=== PATIENT | female | born 1965 | race Caucasian/White ===

== ENCOUNTER → 2019-12-27 08:31 | Outpatient (BNVA) | payer MEDICARE, MEDICAID, SELFPAY | PROVIDERS: Family Provider Family Medicine; PCP Family Medicine; Visit Provider Family Medicine | DX: I10 Essential (primary) hypertension (principal); E78.5 Hyperlipidemia, unspecified; E11.9 Type 2 diabetes mellitus without complications; M25.561 Pain in right knee | CPT/HCPCS: 80053; 80061; 82044; 83036; 85025 ==

== ENCOUNTER 2020-04-30 13:01 | Outpatient (CLI) | payer MEDICARE, MEDICAID, SELFPAY ==
--- NOTE | 2020-04-30 13:06 | XR_ITS ---
WS: [id number] DEXA (DUAL ENERGY X-RAY ABSORPTIOMETRY) Bone mineral density was performed using a [employer] machine. HISTORY: Asymptomatic menopausal state COMPARISON: 12/29/2017 Lumbar spine BMD (L1-L4): 1.342 g/cm2 T score: 1.3 Z score: 1.2 Total hip BMD: Left: 1.072 g/cm2. T score: 0.5 Z score: 0.4 Right: 1.063 g/cm2. T score: 0.4 Z score: 0.4 10 year probability of a major osteoporotic fracture is 5%. Compared to the prior study from 12/29/2017. Lumbar spine bone mineral density has decreased by 5.6%. Bilateral hips bone mineral density has decrease by 6.3%. XR/XR DEXA axial skeleton* [id number] IMPRESSION: Normal bone mineral density based upon the WHO classification for females. Significant decrease in bone mineral density in the lumbar spine and hips since the prior study.
--- NOTE | 2020-04-30 14:30 | CT_ITS ---
WS: [id number] LDCT LUNG CANCER SCREENING TECHNIQUE: Noncontrast CT of the chest with coronal and sagittal reformatted images. CLINICAL INFORMATION: CT LUNG SCREENING COMPARISON: None. DLP: 50.33 mGy.cm DIvol: 1.[address] scans at [facility] use at least one of these dose optimization techniques: automat ed exposure control; mA and/or kV adjustment per patient size (includes targeted exams where dose is matched to clinical indication); or iterative reconstruction. FINDINGS: Several noncalcified pulmonary nodules in both lungs more prominent in the right upper lobe. Largest nodules measure approximate 4-5 mm most prominent in the right upper lobe posteriorly. Approximately 4-5 nodules in total. Aortic calcification. Coronary calcification. Normal GE junction. Visualized adrenal glands appear no rmal. Hypertrophic changes thoracic spine. CT/CT lung screening [id number] IMPRESSION: LUNG-RADS: 2-Benign Appearance or Behavior FOLLOW UP: 12 Month: Continue annual screening with LDCT
== END 2020-04-30 13:02 | disposition home or self-care (01) ==
LOC: CT 13:05
PROVIDERS: Family Provider Family Medicine; PCP Family Medicine; Visit Provider Family Medicine
DX: Z78.0 Asymptomatic menopausal state (principal); F17.219 Nicotine dependence, cigarettes, with unspecified nicotine-induced disorders
CPT/HCPCS: 77080; G0297

== ENCOUNTER 2020-05-06 08:31 | Outpatient (CLI) | payer MEDICARE, MEDICAID, SELFPAY ==
--- NOTE | 2020-05-06 08:37 | MM_ITS ---
WS: [id number] BILATERAL DIGITAL SCREENING MAMMOGRAPHY WITH CAD CLINICAL INFORMATION: SCREENING HISTORY: Screening mammogram. No current complaints. COMPARISON: TECHNIQUE: Bilateral CC and MLO views. FINDINGS: Scattered fibroglandular densities bilaterally. No suspicious focal mass, asymmetry, calcifications, or architectural distortion. No evidence of malignancy. Punctate calcification right breast. Lucent c entered calcification right breast. MM/[id number] IMPRESSION: BI-RADS: 2-Benign FOLLOW UP: 1 Year Follow-up Recommend return to annual screening mammography.
== END 2020-05-06 08:32 | disposition home or self-care (01) ==
LOC: RADSHAW 08:35
PROVIDERS: PCP Family Medicine; Visit Provider Family Medicine
DX: Z12.31 Encounter for screening mammogram for malignant neoplasm of breast (principal)
CPT/HCPCS: 77067

== ENCOUNTER → 2020-08-06 09:08 | Outpatient (BNVA) | payer MEDICARE, MEDICAID, SELFPAY | PROVIDERS: PCP Family Medicine; Visit Provider Family Medicine | DX: E78.5 Hyperlipidemia, unspecified (principal); E11.9 Type 2 diabetes mellitus without complications; I10 Essential (primary) hypertension; M25.561 Pain in right knee; M25.562 Pain in left knee; G89.29 Other chronic pain; F17.219 Nicotine dependence, cigarettes, with unspecified nicotine-induced disorders | CPT/HCPCS: 80053; 80061; 82043; 83036; 85025 ==

== ENCOUNTER → 2021-02-03 08:14 | Outpatient (BNVA) | payer MEDICARE, MEDICAID, SELFPAY | PROVIDERS: PCP Family Medicine; Visit Provider Family Medicine | DX: E11.9 Type 2 diabetes mellitus without complications (principal); I10 Essential (primary) hypertension; E78.5 Hyperlipidemia, unspecified; K21.9 Gastro-esophageal reflux disease without esophagitis; M25.561 Pain in right knee; M25.562 Pain in left knee; G89.29 Other chronic pain; F17.219 Nicotine dependence, cigarettes, with unspecified nicotine-induced disorders | CPT/HCPCS: 80053; 83036 ==

== ENCOUNTER → 2021-08-04 09:08 | Outpatient (BNVA) | payer MEDICARE, MEDICAID, SELFPAY | PROVIDERS: PCP Family Medicine; Visit Provider Family Medicine | DX: E11.9 Type 2 diabetes mellitus without complications (principal); E78.5 Hyperlipidemia, unspecified; I10 Essential (primary) hypertension | CPT/HCPCS: 80053; 80061; 82043; 82607; 83036; 85025 ==

== ENCOUNTER → 2022-01-05 08:48 | Outpatient (BNVA) | payer MEDICARE, MEDICAID, SELFPAY | PROVIDERS: PCP Family Medicine; Visit Provider Family Medicine | DX: E11.9 Type 2 diabetes mellitus without complications (principal); E53.8 Deficiency of other specified B group vitamins; D50.9 Iron deficiency anemia, unspecified; I10 Essential (primary) hypertension; F50.89 Other specified eating disorder; E78.5 Hyperlipidemia, unspecified; K21.9 Gastro-esophageal reflux disease without esophagitis; F17.219 Nicotine dependence, cigarettes, with unspecified nicotine-induced disorders; Z12.11 Encounter for screening for malignant neoplasm of colon; Z68.42 Body mass index [BMI] 45.0-49.9, adult | CPT/HCPCS: 80053; 82607; 82728; 83036; 83550; 85025 ==

== ENCOUNTER → 2022-06-09 14:58 | Outpatient (BNVA) | payer MEDICARE, MEDICAID, SELFPAY | PROVIDERS: PCP Family Medicine; Visit Provider Family Medicine | DX: Z01.818 Encounter for other preprocedural examination (principal); E78.5 Hyperlipidemia, unspecified; E11.9 Type 2 diabetes mellitus without complications | CPT/HCPCS: 80053; 80061; 82043; 83036; 85025 ==

== ENCOUNTER → 2022-12-08 13:33 | Outpatient (BNVA) | payer MEDICARE, MEDICAID, SELFPAY | PROVIDERS: PCP Family Medicine; Visit Provider Family Medicine | DX: E11.9 Type 2 diabetes mellitus without complications (principal); E53.8 Deficiency of other specified B group vitamins | CPT/HCPCS: 80053; 82607; 83036; 85025 ==

== ENCOUNTER 2022-12-25 12:19 | Outpatient (CLI) | payer MEDICARE, MEDICAID, SELFPAY ==
--- NOTE | 2022-12-25 12:44 | MM_ITS ---
WS: [id number] BILATERAL SCREENING DIGITAL TOMOSYNTHESIS MAMMOGRAM WITH CAD HISTORY: SCREEN COMPARISON: 05/06/2020, 01/19/2019 Bilateral CC and MLO views with tomosynthesis and synthetic mammography submitted. Computer aided det ection analyzed. Breast composition: There are scattered areas of fibroglandular density. No suspicious masses, microc alcifications or architectural distortion. Benign calcifications. MM/[id number] IMPRESSION: BI-RADS: 2-Benign FOLLOW UP: 1 Year Follow-up
== END 2022-12-25 12:20 | disposition home or self-care (01) ==
LOC: RAD 12:22
PROVIDERS: PCP Family Medicine; Visit Provider Family Medicine
DX: Z12.31 Encounter for screening mammogram for malignant neoplasm of breast (principal)
CPT/HCPCS: 77063; 77067

== ENCOUNTER → 2023-05-31 14:44 | Outpatient (BNVA) | payer MEDICARE, MEDICAID, SELFPAY | PROVIDERS: PCP Family Medicine; Visit Provider Family Medicine | DX: E11.9 Type 2 diabetes mellitus without complications (principal) | CPT/HCPCS: 80053; 80061; 83036 ==

== ENCOUNTER → 2023-11-16 13:40 | Outpatient (BNVA) | payer MEDICARE, MEDICAID, SELFPAY | PROVIDERS: PCP Family Medicine; Visit Provider Family Medicine | DX: E11.9 Type 2 diabetes mellitus without complications (principal); F17.219 Nicotine dependence, cigarettes, with unspecified nicotine-induced disorders; I10 Essential (primary) hypertension; M25.561 Pain in right knee; M25.562 Pain in left knee; G89.29 Other chronic pain; Z79.899 Other long term (current) drug therapy | CPT/HCPCS: 80053; 82043; 83036; 85025 ==

== ENCOUNTER → 2024-03-28 13:43 | Outpatient (BNVA) | payer MEDICARE, MEDICAID, SELFPAY | PROVIDERS: PCP Family Medicine; Visit Provider Family Medicine | DX: E11.9 Type 2 diabetes mellitus without complications (principal) | CPT/HCPCS: 80048 ==

== ENCOUNTER 2024-04-11 10:55 | Outpatient (CLI) | payer MEDICARE, MEDICAID, SELFPAY ==
--- NOTE | 2024-04-11 11:00 | MM_ITS ---
WS: [id number] Bilateral screening 3D tomosynthesis digital mammogram, 04/11/2024 Clinical Data: screening Comparison: 12/25/2022, 05/06/2020, 01/19/2019, 12/29/2017, 04/11/2014. Findings: The breast parenchymal pattern shows fibroglandular tissue. No spiculated masses or clustered calcifi cations are seen. There are no secondary signs of carcinoma. MM/[id number] Impression: 1. Negative bilateral mammogram unchanged. 2. Recommend annual screening mammograms. BIRADS: 1-Negative FOLLOW UP: 1 Year Follow-up The CAD shipping checker was used.
== END 2024-04-11 10:56 | disposition home or self-care (01) ==
LOC: RAD 10:56
PROVIDERS: PCP Family Medicine; Visit Provider Family Medicine
DX: Z12.31 Encounter for screening mammogram for malignant neoplasm of breast (principal)
CPT/HCPCS: 77063; 77067

== ENCOUNTER → 2024-06-08 14:23 | Outpatient (BNVA) | payer MEDICARE, MEDICAID, SELFPAY | PROVIDERS: PCP Family Medicine; Visit Provider Family Medicine | DX: E11.9 Type 2 diabetes mellitus without complications; N18.31 Chronic kidney disease, stage 3a | CPT/HCPCS: 80053; 83036; 85025 ==

== ENCOUNTER 2024-06-21 09:58 | Outpatient (CLI) | payer MEDICARE, MEDICAID, SELFPAY ==
--- NOTE | 2024-06-21 10:00 | CT_ITS ---
WS: [id number] LDCT LUNG CANCER SCREENING HISTORY: screening TECHNIQUE: Axial imaging performed from the apices to 1 cm below the costophrenic angles. Coronal and sagittal reformats are submitted with axial MIP series. All CT scans at [facility] use at least one of these dose optimization techniques: automated exposure control; mA and/or kV adjustment per patient size (includes targeted exams where dose is matched to clinical indication); or iterativ e reconstruction. DLP: 140.37 mGy.cm DIvol: Mean CTDIvol: 3.40 (mGy) COMPARISON: 04/30/2020 Diagnostic quality: Suboptimal secondary to body habitus but improved since 04/30/2020. Lungs: Pulmonary hyperinflation. Lungs are better visualized on today's exam. There is a tiny microno dule anterior RIGHT upper lobe in the posterior RIGHT upper lobe. This may've been present on the carole or exam but poorly visualized due to the quality. There are no suspicious masses identified. There ar e a few small granulomata. No endobronchial lesions. Heart: Normal size heart with no pericardial effusion.. Other findings: No adenopathy identified on this unenhanced exam. Mild atherosclerosis aorta. Normal size pulmonary artery. RIGHT adrenal nodule measures 1.4 x 1.2 cm consistent with a adenoma. Mild thi ckening of the LEFT adrenal gland. CT/CT lung screening [id number] IMPRESSION: LUNG-RADS: 2-Benign Appearance or Behavior FOLLOW UP: 12 Month: Continue annual screening with LDCT OTHER FINDINGS (S MODIFIER): None.
== END 2024-06-21 09:59 | disposition home or self-care (01) ==
LOC: RAD 09:58
PROVIDERS: PCP Family Medicine; Visit Provider Family Medicine
DX: Z12.2 Encounter for screening for malignant neoplasm of respiratory organs (principal); F17.219 Nicotine dependence, cigarettes, with unspecified nicotine-induced disorders; R91.1 Solitary pulmonary nodule; J98.4 Other disorders of lung; D35.01 Benign neoplasm of right adrenal gland
CPT/HCPCS: 71271

== ENCOUNTER → 2024-06-29 11:32 | Outpatient (BNVA) | payer MEDICAID, SELFPAY | PROVIDERS: PCP Family Medicine; Visit Provider Nurse Practitioner | DX: R50.9 Fever, unspecified (principal) | CPT/HCPCS: 87400; 87426 ==

== ENCOUNTER → 2024-07-03 14:18 | Outpatient (BNVA) | payer MEDICAID, SELFPAY | PROVIDERS: PCP Family Medicine; Visit Provider Family Medicine | DX: R10.9 Unspecified abdominal pain (principal) | CPT/HCPCS: 81000 ==

== ENCOUNTER 2024-07-05 17:21 | Emergency (ER) | payer MEDICARE, MEDICAID, SELFPAY ==
[2024-07-05 17:41] VITALS: BP 137/55; PULSE 64; RESP 18; TEMP 37.7; O2SAT 93
--- NOTE | 2024-07-05 17:49 | XRR_ITS ---
PROCEDURE INFORMATION: Exam: XR Chest Exam date and time: 07/05/2024 6:14 PM Age: 59 years old Clinical indication: Fever; Additional info: Fever, cough TECHNIQUE: Imaging protocol: Radiologic exam of the chest. Views: 1 view. COMPARISON: CT lung screening [id number] 06/21/2024 10:33 AM FINDINGS: Lungs: Unremarkable. No consolidation. Pleural spaces: Unremarkable. No pleural effusion. No pneumothorax. Heart/Mediastinum: Unremarkable. No cardiomegaly. Bones/joints: Unremarkable. XR/XR chest 1V portable [id number] IMPRESSION: No acute findings.
[2024-07-05 18:14] LABS: Basophils # 0.1 10^3/uL (0.0-0.1); Basophils % 0.4 %; Eosinophils % 0.1 %; Hematocrit 36.9 % (36-47); Lymphocytes # 1.1 10^3/uL (0.8-4.8); Lymphocytes % 7.4 %; Mean Corpuscular HGB Conc 32.5 g/dL (30-55); Mean Corpuscular Hemoglobin 26.5 pg (27-33); Mean Corpuscular Volume 81.6 fl (85-98); Mean Platelet Volume 10.7 fL (7.4-10.4); Monocytes # 1.6 10^3/uL (0.2-0.9); Monocytes % 11.4 %; Neutrophils # 11.28 10^3/uL (1.8-7.7); Neutrophils % 79.1 %; Nucleated Red Blood Cells % 0 %; Platelet Count 310 10^3/cmm (157-399); Red Blood Count 4.52 10^6/uL (3.85-5.65); Red Cell Distribution Width 18.5 % (12.1-15.1); White Blood Count 14.25 10^3/uL (3.29-11.43)
--- NOTE | 2024-07-05 18:24 | ED_ITS ---
HPI - Fever 2 General: Chief Complaint: Fever Stated Complaint: fever, pain Time Seen by Provider: 07/05/24 17:46 History of Present Illness: 59-year-old female with history of GERD, type 2 diabetes, hypertension, chronic kidney disease and obesity who presents to the emergency room with fever and malaise for about a week now. Her only symptom she has had some pain in her legs, in the right more than the left. In her groin area. Other than malaise she has no other complaints. No cough. No shortness of breath. No abdominal pain. No nausea or vomiting. No diarrhea. No dysuria. No neck pain. Related Data Home Medications Medication Instructions Recorded Confirmed aspirin 81 mg tablet,delayed 81 mg PO DAILY 12/27/19 07/03/24 release magnesium oxide 250 mg PO DAILY 12/27/19 07/03/24 calcium carbonate (Calcium 500) 500 mg PO DAILY 05/24/20 07/03/24 cholecalciferol (vitamin D3) 50 50 mcg PO DAILY 05/24/20 07/03/24 mcg (2,000 unit) capsule gabapentin 800 mg tablet 800 mg PO DAILY 06/09/22 07/03/24 Previous Rx's Medication Instructions Recorded blood sugar diagnostic (Accu-Chek #100 ea 02/11/21 Ivonne Plus test strips) lancets (Accu-Chek Fastclix Lancet #100 ea 02/11/21 Drum) syringe with needle 3 mL 23 x 1 #50 ea 08/08/21 (BD Eclipse Luer-Jadyn) cyanocobalamin (vitamin B-12) 1,000 mcg IM .monthly #1 mL 01/07/22 1,000 mcg/mL injection solution syringe with needle 3 mL 21 gauge #100 ea 01/07/22 x 1 (BD Luer-Jadyn Syringe) lisinopril 10 mg tablet See Rx Instructions .Route 03/17/24 .COMPLEX #180 tabs gabapentin 300 mg capsule See Rx Instructions .Route 03/28/24 .COMPLEX #90 caps hydrocodone 5 mg-acetaminophen 325 1 tab PO Q4H PRN pain 7 days #30 03/28/24 mg tablet tabs meloxicam 15 mg tablet 15 mg PO DAILY #90 tabs 06/08/24 varenicline 1 mg tablet (Chantix) 0.5 mg (1/2 x 1 mg) PO BID #30 tabs 06/08/24 glipizide 5 mg tablet 5 mg PO DAILY #90 tabs 06/09/24 metformin 500 mg tablet 500 mg PO BID #180 tabs 06/09/24 atenolol 50 mg-chlorthalidone 25 See Rx Instructions .Route 06/27/24 mg tablet .COMPLEX #90 tabs omeprazole 20 mg capsule,delayed See Rx Instructions .Route 06/27/24 release .COMPLEX #90 caps rosuvastatin 20 mg tablet See Rx Instructions .Route 06/27/24 .COMPLEX #90 tabs ondansetron 4 mg disintegrating 4 mg PO Q8H PRN nausea and 06/29/24 tablet vomiting #30 tabs cephalexin 500 mg capsule 500 mg PO BID 5 days #10 caps 07/05/24 dexamethasone 6 mg tablet 6 mg PO DAILY 5 days #5 tabs 07/05/24 doxycycline monohydrate 100 mg 100 mg PO BID 10 days #20 caps 07/05/24 capsule Allergies Allergy/AdvReac Type Severity Reaction Status Date / Time No Known Allergies Allergy Verified 07/05/24 17:45 Review of Systems 2 Narrative: Constitutional symptoms: Negative except as documented in HPI. Skin symptoms: Negative except as documented in HPI. Eye symptoms: Negative except as documented in HPI. ENMT symptoms: Negative except as documented in HPI. Respiratory symptoms: Negative except as documented in HPI. Cardiovascular symptoms: Negative except as documented in HPI. Gastrointestinal symptoms: Negative except as documented in HPI. Genitourinary symptoms: Negative except as documented in HPI. Musculoskeletal symptoms: Negative except as documented in HPI. Neurologic symptoms: Negative except as documented in HPI. Psychiatric symptoms: Negative except as documented in HPI. Endocrine symptoms: Negative except as documented in HPI. PFSH ED 2 PFSH: Medical History (Updated 07/05/24 @ 20:31 by Katrina Savage MD) CKD stage 3a, GFR 45-59 ml/min Tobacco use disorder Dyslipidemia GERD (gastroesophageal reflux disease) Type 2 diabetes mellitus, without long-term current use of insulin Essential hypertension Chronic pain of both knees Surgical History H/O: hysterectomy H/O section Family History Other CAD (coronary artery disease) Diabetes Hypertension Social History Smoking and tobacco/nicotine status: current every day tobacco/nicotine user cigarettes Packs smoked per day: 0.75 Alcohol intake: never Substance/Drug Use: never Female Reproductive History: Para: 2 Spontaneous abortions: No Physical Exam 2 Narrative: EXAM NARRATIVE: General: Alert, no acute distress. Skin: Warm, dry. Head: Normocephalic, atraumatic. Neck: Supple, trachea midline. Eye: Extraocular movements are intact. Ears, nose, mouth and throat: mucosa moist. Cardiovascular: Regular, Normal peripheral perfusion. Respiratory: Lungs are clear to auscultation, respirations are non-labored, breath sounds are equal, Symmetrical chest wall expansion. Gastrointestinal: Soft, Nontender, Non distended Musculoskeletal: Normal ROM, no deformity. Neurological: Alert and oriented, No focal neurological deficit observed. Psychiatric: Cooperative, appropriate mood & affect. Course 2 Vital Signs: Vital signs: Vital Signs Temperature 100 F H 07/05/24 17:41 Pulse Rate 60 07/05/24 19:45 Respiratory Rate 16 07/05/24 19:45 Blood Pressure 138/93 07/05/24 19:45 Pulse Oximetry 96 07/05/24 19:45 Oxygen Delivery Me thod Room Air 07/05/24 19:45 MDM - Fever Medical Decision Making Medical decision making: Differential diagnosis including but not limited to and based on the above HPI, review of systems and physical exam: Fever for over a week now. Concern for pneumonia. Concern for urinary tract infection. Concern for tickborne illness. Concern for autoimmune illness. Also with her pain in her leg I would worry about DVT so an ultrasound was ordered. Orders placed to evaluate differential diagnosis based on the above differential, HPI and physical exam Lab Review: Laboratory results were reviewed and interpreted by myself the emergency room physician. Patient was noted to have some low glucose. She took some oral food and drink and glucose has improved. Mild leukocytosis with a white count of 14,000. Hemoglobin normal at 12. BUN and creatinine 28 and 0.9. Sodium borderline low at 134. CRP was elevated quite significantly at 277. Urinalysis showed 10-15 whites and trace bacteria. I really do not think this is a significant enough of a UTI to be causing her symptoms but we will treat. Placing her on doxycycline and Keflex. Ultrasound lower extremity shows no DVT. This was reviewed and interpreted by myself the emergency room physician. I also reviewed the radiology report. Chest x-ray: No acute process. No infiltrate. No pneumothorax. This was reviewed and interpreted by myself the ER physician. I reviewed the patient's medical record. Reexamination: Patient remained stable. No increased work of breathing. No altered mental status. No focal motor deficits. Assessment and plan: Febrile illness ?Inflammatory markers are up. This could be some sort of autoimmune illness. Ultrasound ruled out DVT. IV Decadron being given. IV Rocephin for possible UTI. IV doxycycline for possible atypical infection or tick illness. - Discharged home - Discussed plan with patient. Answered any questions. - Evaluation and treatment of this problem were appropriate in the emergency setting. Lab Data 07/05/24 18:00 07/05/24 18:00 Radiology Impressions Chest X-Ray 07/05/24 17:49 IMPRESSION: No acute findings. Venous Duplex 07/05/24 18:25 IMPRESSION: No evidence of deep vein thrombosis in the bilateral lower extremities. Laboratory Results WBC 14.25 10^3/uL (3.29-11.43) H 07/05/24 18:00 RBC 4.52 10^6/uL (3.85-5.65) 07/05/24 18:00 Hgb 12.00 g/dL (11.27-16.99) 07/05/24 18:00 Hct 36.9 % (36-47) 07/05/24 18:00 MCV 81.6 fl (85-98) L 07/05/24 18:00 MCH 26.5 pg (27-33) L 07/05/24 18:00 MCHC 32.5 g/dL (30-55) 07/05/24 18:00 RDW 18.5 % (12.1-15.1) H 07/05/24 18:00 Plt Count 310 10^3/cmm (157-399) 07/05/24 18:00 MPV 10.7 fL (7.4-10.4) H 07/05/24 18:00 Neut % (Auto) 79.1 % 07/05/24 18:00 Lymph % (Auto) 7.4 % 07/05/24 18:00 [place] % (Auto) 11.4 % 07/05/24 18:00 Eos % (Auto) 0.1 % 07/05/24 18:00 Baso % (Auto) 0.4 % 07/05/24 18:00 Neut # (Auto) 11.28 10^3/uL (1.8-7.7) H 07/05/24 18:00 Lymph # (Auto) 1.1 10^3/uL (0.8-4.8) 07/05/24 18:00 [place] # (Auto) 1.6 10^3/uL (0.2-0.9) H 07/05/24 18:00 Eos # (Auto) 0.0 10^3/uL (0.0-0.8) 07/05/24 18:00 Baso # (Auto) 0.1 10^3/uL (0.0-0.1) 07/05/24 18:00 Nucleated RBC % (auto) 0 % 07/05/24 18:00 Nucleated RBCs # 0.0 /100WBC 07/05/24 18:00 Sodium 134 mmol/L (136-145) L 07/05/24 18:00 Potassium 3.6 mmol/L (3.5-5.1) 07/05/24 18:00 Chloride 94 mmol/L (98-107) L 07/05/24 18:00 Carbon Dioxide 28 mmol/L (22-29) 07/05/24 18:00 Anion Gap 15.6 (5-19) 07/05/24 18:00 BUN 28 mg/dL (8-23) H 07/05/24 18:00 Creatinine 0.9 mg/dL (0.5-0.9) 07/05/24 18:00 GFR Calculation 63.7 mL/min (90-130) L 07/05/24 18:00 Glucose 54 mg/dL (65-115) L 07/05/24 18:00 POC Glucose 80 mg/dL (70-110) 07/05/24 19:54 Calculated Osmolality 281 mOsm/kg (285-295) L 07/05/24 18:00 Lactic Acid 0.9 mmol/L (0.5-2.2) 07/05/24 18:00 Calcium 9.6 mg/dL (8.5-10.5) 07/05/24 18:00 Total Bilirubin 0.8 mg/dL (0.15-1.2) 07/05/24 18:00 AST 45 U/L (0-32) H 07/05/24 18:00 ALT 50 U/L (0-33) H 07/05/24 18:00 Alkaline Phosphatase 106 U/L (35-105) H 07/05/24 18:00 C-Reactive Protein 277.5 mg/L (0.0-4.9) H 07/05/24 18:00 Total Protein 7.1 g/dL (6.6-8.7) 07/05/24 18:00 Albumin 3.2 g/dL (3.5-5.2) L 07/05/24 18:00 Globulin 3.9 g/dL (1.3-4.6) 07/05/24 18:00 Procalcitonin 0.16 ng/mL (0-0.5) 07/05/24 18:00 Urine Color [place] (Yellow) A 07/05/24 20:00 Urine Appearance Clear (CLEAR) 07/05/24 20:00 Urine pH 5.5 (5-7) 07/05/24 20:00 Ur Specific [place] 1.027 (1.005-1.030) 07/05/24 20:00 Urine Protein 1+ (Negative) A 07/05/24 20:00 Urine Glucose (UA) Negative (Normal) 07/05/24 20:00 Urine Ketones Negative (Negative) 07/05/24 20:00 Urine Blood Negative (Negative) 07/05/24 20:00 Urine Nitrate Negative (Negative) 07/05/24 20:00 Urine Bilirubin 1+ (Negative) H 07/05/24 20:00 Urine Urobilinogen 1.0 mg/dL (Negative) 07/05/24 20:00 Ur Leukocyte Esterase Trace (Negative) A 07/05/24 20:00 Urine RBC 0-4 /hpf (0-2) H 07/05/24 20:00 Urine WBC 10-15 /hpf (0-5) H 07/05/24 20:00 Ur Squamous Epith Cells 25-40 /hpf (0-5) H 07/05/24 20:00 Amorphous Sediment Trace /hpf 07/05/24 20:00 Urine Bacteria Trace /hpf (NONE) 07/05/24 20:00 Urine Mucus Trace /hpf 07/05/24 20:00 Ur Oval Fat Bodies Rare /hpf 07/05/24 20:00 Coronavirus (PCR) Negative (Negative) 07/05/24 17:58 Influenza A (PCR) Negative (Negative) 07/05/24 17:58 Influenza Type B (PCR) Negative (Negative) 07/05/24 17:58 RSV (PCR) Negative (Negative) 07/05/24 17:58 All radiology interpretation(s) finalized by discharge Discharge Plan Discharge Patient Disposition: Home Clinical Impression: Febrile illness Condition: Stable Prescriptions: New dexamethasone 6 mg tablet 6 mg PO DAILY 5 Days Qty: 5 0RF doxycycline monohydrate 100 mg capsule 100 mg PO BID 10 Days Qty: 20 0RF cephalexin 500 mg capsule 500 mg PO BID 5 Days Qty: 10 0RF No Action aspirin 81 mg tablet,delayed release (DR/EC) 81 mg PO DAILY magnesium oxide 250 mg magnesium tablet 250 mg PO DAILY cholecalciferol (vitamin D3) 50 mcg (2,000 unit) capsule 50 mcg PO DAILY calcium carbonate [Calcium 500] 500 mg calcium (1,250 mg) tablet 500 mg PO DAILY varenicline [Chantix] 1 mg tablet 0.5 mg PO BID Qty: 30 5RF meloxicam 15 mg tablet 15 mg PO DAILY Qty: 90 1RF ondansetron 4 mg tablet,disintegrating 4 mg PO Q8H PRN (Reason: nausea and vomiting) Qty: 30 0RF gabapentin 800 mg tablet 800 mg PO DAILY hydrocodone-acetaminophen 5-325 mg tablet 1 tab PO Q4H PRN (Reason: pain) 7 Days Qty: 30 0RF (DME) Accu-Chek Ivonne Plus test strp Strip See Rx Instructions .Route Qty: 100 5RF Rx Instructions: ONCE DAILY (DME) lancets [Accu-Chek Fastclix Lancet Drum] Misc See Rx Instructions .Route Qty: 100 5RF Rx Instructions: ONE DAILY (DME) BD Eclipse Luer-Jadyn 3 mL 23 x 1 syringe See Rx Instructions .Route Qty: 50 2RF Rx Instructions: to injection b12 90 day supply cyanocobalamin (vitamin B-12) 1,000 mcg/mL solution 1,000 mcg IM .monthly Qty: 1 2RF (DME) BD Luer-Jadyn Syringe 3 mL 21 gauge x 1 syringe See Rx Instructions .Route Qty: 100 0RF Rx Instructions: As directed lisinopril 10 mg tablet See Rx Instructions .ROUTE .COMPLEX Qty: 180 0RF Dose Instruction: Take 1 tablet by mouth twice daily Rx Instructions: Take 1 tablet by mouth twice daily gabapentin 300 mg capsule See Rx Instructions .ROUTE .COMPLEX Qty: 90 0RF Dose Instruction: Take 1 capsule by mouth once daily Rx Instructions: Take 1 capsule by mouth once daily glipizide 5 mg tablet 5 mg PO DAILY Qty: 90 1RF metformin 500 mg tablet 500 mg PO BID Qty: 180 1RF Rx Instructions: 500 mg orally twice a day; omeprazole 20 mg capsule,delayed release(DR/EC) See Rx Instructions .ROUTE .COMPLEX Qty: 90 0RF Dose Instruction: Take 1 capsule by mouth once daily Rx Instructions: Take 1 capsule by mouth once daily rosuvastatin 20 mg tablet See Rx Instructions .ROUTE .COMPLEX Qty: 90 0RF Dose Instruction: Take 1 tablet by mouth once daily Rx Instructions: Take 1 tablet by mouth once daily atenolol-chlorthalidone 50-25 mg tablet See Rx Instructions .ROUTE .COMPLEX Qty: 90 0RF Dose Instruction: Take 1 tablet by mouth once daily Rx Instructions: Take 1 tablet by mouth once daily Discharge Orders: Discharge ED (Routine); Ordered 07/05/24 Ordered By: Katrina Savage Referrals: Howard Owen MD [Primary Care Provider] - Discharge Diet: Usual diet Discharge Activity: Increase activity as tolerated Patient Instructions: Fever in Adults (ED) Activity Restrictions/Additional Instructions: Thank you for choosing [facility] for your healthcare needs today. Please realize this is an emergency room and that we are providing you with a medical screening exam and this may not be complete and all inclusive of all the testing and or work up that you may need to determine your ailment or severity of your illness. You have been screened and evaluated and felt safe for discharge. Health conditions do change or evolve sometimes and as such it is important that you follow up with your Primary Doctor to be re checked, 3-5 days is a general good time frame for follow up. You are always welcome to return to the ED for re assessment if your symptoms are worsening or you have new concerns Coding Level of Care Code ED Conventions Reservationist for Luz Medina
--- NOTE | 2024-07-05 18:25 | USR_ITS ---
PROCEDURE INFORMATION: Exam: US Duplex Lower Extremity Veins, Bilateral Exam date and time: 07/05/2024 7:28 PM Age: 59 years old Clinical indication: Pain; Leg, lower; Bilateral; Additional info: Fever, leg pain TECHNIQUE: Imaging protocol: Real-time duplex ultrasound of the bilateral extremities with 2-D beaver scale, color Doppler flow and spectral waveform analysis including responses to compression and other maneuvers (when performed) with image documentation. Complete exam focused on the lower extremity veins. COMPARISON: No relevant prior studies available. FINDINGS: Right deep veins: Unremarkable. The common femoral, femoral, proximal profunda femoral and popliteal veins are patent without thrombus. Normal Doppler waveforms. Normal compressibility and/or augmentation response. Left deep veins: Unremarkable. The common femoral, femoral, proximal profunda femoral and popliteal veins are patent without thrombus. Normal Doppler waveforms. Normal compressibility and/or augmentation response. Superficial veins: Greater saphenous veins at the saphenofemoral junctions are patent bilaterally without thrombus. Soft tissues: Unremarkable. US/CV venous duplex [facility] [id number] IMPRESSION: No evidence of deep vein thrombosis in the bilateral lower extremities.
[2024-07-05 18:29] LABS: Alanine Aminotransferase 50 U/L (0-33); Albumin Level 3.2 g/dL (3.5-5.2); Alkaline Phosphatase 106 U/L (35-105); Anion Gap 15.6 (5-19); Aspartate Amino Transferase 45 U/L (0-32); Blood Urea Nitrogen 28 mg/dL (8-23); C Reactive Protein 277.5 mg/L (0.0-4.9); Calcium 9.6 mg/dL (8.5-10.5); Carbon Dioxide 28 mmol/L (22-29); Chloride 94 mmol/L (98-107); Creatinine Clr Calc Pharmacy 76.4623; Globulin 3.9 g/dL (1.3-4.6); Glomerular Filtration Rate 63.7 mL/min (90-130); Glucose 54 mg/dL (65-115); Osmolality Calculated 281 mOsm/kg (285-295); Potassium 3.6 mmol/L (3.5-5.1); Sodium 134 mmol/L (136-145); Total Bilirubin 0.8 mg/dL (0.15-1.2); Total Protein 7.1 g/dL (6.6-8.7)
[2024-07-05 18:32] LABS: Lactic Sepsis W/Reflex 0.9 mmol/L (0.5-2.2)
[2024-07-05 18:36] LABS: Procalcitonin 0.16 ng/mL (0-0.5)
[2024-07-05 19:03] LABS: Covid PCR NEGATIVE (Negative); Influenza A NEGATIVE (Negative); Influenza B NEGATIVE (Negative); Respiratory Syncytial Virus Ce NEGATIVE (Negative)
[2024-07-05 19:27] LABS: Glucose Point of Care 57 mg/dL (70-110)
[2024-07-05 19:45] VITALS: BP 138/93; PULSE 60; RESP 16; O2SAT 96
[2024-07-05 19:59] LABS: Glucose Point of Care 80 mg/dL (70-110)
[2024-07-05 20:08] LABS: Bilirubin Urine 1+ (Negative); Blood Urine Negative (Negative); Glucose Urine UA Negative (Normal); Ketones Urine Negative (Negative); Leukocyte Esterase Urine Trace (Negative); Nitrate Urine Negative (Negative); Protein Urine 1+ (Negative); Specific Gravity, Urine 1.027 (1.005-1.030); Urine Appearance Clear (CLEAR); pH Urine 5.5 (5-7)
[2024-07-05 20:17] LABS: Urine Color Orange (Yellow)
[2024-07-05 20:20] LABS: Bacteria Urine TRACE /hpf; Mucus Urine TRACE /hpf; RBC Urine 0-4 /hpf (0-2); Squamous Epithelial Cell Urine 25-40 /hpf (0-5)
[2024-07-05 20:21] LABS: Add Urine Culture? No; Amorphous Sediment Urine TRACE /hpf; Oval Fat Bodies Urine RARE /hpf
[2024-07-05] MEDS: doxycycline 100 MG in sodium chloride 0.9% (plus) 100 ML IV (20:38)
[2024-07-05] MEDS: dexamethasone 10 mg/mL INJ IVP (20:38)
[2024-07-05] MEDS: cefTRIAXone 1,000 mg SDV 1000 MG IVP (20:43)
[2024-07-05 21:12] VITALS: BP 114/87; PULSE 60; RESP 16; O2SAT 95
== END 2024-07-05 21:12 | disposition home or self-care (01) ==
PROVIDERS: Emergency Provider Emergency Medicine; PCP Family Medicine
DX: R50.9 Fever, unspecified (principal); Z79.82 Long term (current) use of aspirin; Z79.84 Long term (current) use of oral hypoglycemic drugs; Z11.52 Encounter for screening for COVID-19; E11.22 Type 2 diabetes mellitus with diabetic chronic kidney disease; I12.9 Hypertensive chronic kidney disease with stage 1 through stage 4 chronic kidney disease, or unspecified chronic kidney disease; N18.31 Chronic kidney disease, stage 3a; E78.5 Hyperlipidemia, unspecified; F17.210 Nicotine dependence, cigarettes, uncomplicated
CPT/HCPCS: 0241U; 36415; 36416; 71045; 80053; 81001; 82962; 83605; 84145; 85025; 86140; 87040; 93970; 96374; 96375; 99285; J0696; J1100; J3490

== ENCOUNTER → 2024-12-14 08:45 | Outpatient (BNVA) | payer MEDICARE, MEDICAID, SELFPAY | PROVIDERS: PCP Family Medicine; Visit Provider Family Medicine | DX: D50.9 Iron deficiency anemia, unspecified (principal); E11.9 Type 2 diabetes mellitus without complications; R50.9 Fever, unspecified; Z13.6 Encounter for screening for cardiovascular disorders | CPT/HCPCS: 80053; 82728; 83036; 83550; 85025; 85651; 86140; 86618; 86664; 86665; 86666; 86705; 86706; 86709; 86757; 86803; 87340 ==

== ENCOUNTER 2025-01-16 13:37 | Outpatient (CLI) | payer OTHER, MEDICAID, SELFPAY ==
--- NOTE | 2025-01-16 14:30 | CTR_ITS ---
PROCEDURE INFORMATION: Exam: CT Chest With Contrast; Diagnostic Exam date and time: 01/16/2025 3:15 PM Age: 60 years old Clinical indication: Prior surgery; Surgery date: 6+ months; Surgery type: Hyst, 2 x c-sectons; Low grade fever, rheumatoid arthritis, bilateral hip and knee pain x 6 months; Additional info: Fuo TECHNIQUE: Imaging protocol: Diagnostic computed tomography of the chest with contrast. Radiation optimization: All CT scans at this facility use at least one of these dose optimization techniques: automated exposure control; mA and/or kV adjustment per patient size (includes targeted exams where dose is matched to clinical indication); or iterative reconstruction. Contrast material: OMNI 350; Contrast volume: 100 ml; Contrast route: INTRAVENOUS (IV); COMPARISON: CT lung screening 06/21/2024 10:33 AM RADIATION DOSE METRICS: Total DLP (mGy-cm): 1421.79 FINDINGS: Lungs: Unremarkable. No consolidation. No masses. Pleural spaces: Unremarkable. No pneumothorax. No pleural effusion. Heart: Unremarkable. No cardiomegaly. No pericardial effusion. Lymph nodes: Unremarkable. No enlarged lymph nodes. Vasculature: Unremarkable. No aortic aneurysm. Bones/joints: Unremarkable. No acute fracture. Soft tissues: Unremarkable. PROCEDURE INFORMATION: Exam: CT Abdomen And Pelvis With Contrast Exam date and time: 01/16/2025 3:15 PM Age: 60 years old Clinical indication: Prior surgery; Surgery date: 6+ months; Surgery type: Hyst, 2 x c-sectons; Low grade fever, rheumatoid arthritis, bilateral hip and knee pain x 6 months; Additional info: Fuo TECHNIQUE: Imaging protocol: Computed tomography of the abdomen and pelvis with contrast. Radiation optimization: All CT scans at this facility use at least one of these dose optimization techniques: automated exposure control; mA and/or kV adjustment per patient size (includes targeted exams where dose is matched to clinical indication); or iterative reconstruction. Contrast material: OMNI 350; Contrast volume: 100 ml; Contrast route: INTRAVENOUS (IV); COMPARISON: CT lung screening [id number] 06/21/2024 10:33 AM RADIATION DOSE METRICS: Total DLP (mGy-cm): 1421.79 FINDINGS: Lungs: Lung bases are clear. No pleural effusion. Liver: Normal. No mass. Gallbladder and biliary ducts: Normal. No calcified stones. No ductal dilation. Pancreas: Normal. No ductal dilation. Spleen: Normal. No splenomegaly. Adrenal glands: Normal. No mass. Kidneys and ureters: See Soft tissues finding. Stomach and bowel: See Soft tissues finding. Appendix: The appendix is clearly identified and is unremarkable. Intraperitoneal space: Unremarkable. No free air. No significant fluid collection. Vasculature: Unremarkable. No abdominal aortic aneurysm. Lymph nodes: Unremarkable. No enlarged lymph nodes. Urinary bladder: Unremarkable as visualized. Reproductive: Unremarkable as visualized. Bones/joints: Unremarkable. No acute fracture. Soft tissues: There is a multiloculated, poorly defined fluid collection involving the right psoas muscle. The collection extends from the level just below the kidneys down to the level of the right SI joint. The collection measures about 11 cm in length and shows a maximum transverse diameter of 3.7 cm. A small portion of the collection extends laterally to the right and is confluence with the cecal wall. CT/CT chest abdpel w/*[id number] IMPRESSION: No acute findings. IMPRESSION: Abscess of the right psoas muscle with confluent extension to the cecal wall
[2025-01-16] MEDS: iohexol 350 mg/mL 500 mL Btl (per mL) PO (14:54)
[2025-01-16] MEDS: iohexol 350 mg/mL 500 mL Btl (per mL) IV (15:20)
== END 2025-01-16 13:38 | disposition home or self-care (01) ==
LOC: RAD 13:39
PROVIDERS: PCP Family Medicine; Visit Provider Family Medicine
DX: M25.50 Pain in unspecified joint (principal); Z79.899 Other long term (current) drug therapy; Z71.85 Encounter for immunization safety counseling; R79.82 Elevated C-reactive protein (CRP); N18.31 Chronic kidney disease, stage 3a; K68.12 Psoas muscle abscess
CPT/HCPCS: 36415; 71260; 74177; 82306; 83520; 86200; 86480; 86704; 86803; 87340; 99214

== ENCOUNTER 2025-01-18 09:52 | Emergency (ER) | payer OTHER, MEDICAID, SELFPAY ==
[2025-01-18] VITALS (15 sets, daily range): BP systolic 140–173; BP diastolic 77–125; PULSE 40–54; RESP 15–18; TEMP 36.6; O2SAT 92–99; BMI 39.9
--- NOTE | 2025-01-18 09:58 | ECG_ITS ---
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 Measurements Intervals [place] Rate: 50 P: 57 MS: 161 QRS: 26 QRSD: 85 T: 37 QT: 406 QTc: 373 Interpretive Statements SINUS BRADYCARDIA No previous ECG available for comparison Electronically Signed On 01-19-2025 08:45:32 CDT by Lilian Pace M.D. [id number]
--- NOTE | 2025-01-18 10:03 | ED_ITS ---
HPI - Back Pain/Injury 2 General: Chief Complaint: Back Pain/Injury Stated Complaint: abnormal CT scan Time Seen by Provider: 01/18/25 09:55 History of Present Illness: 58-year-old female presents to the [facility] ency room at the direction of her primary caregiver after having a CT yesterday that showed a right psoas abscess. Patient states she has not felt well the last couple of months low-grade fevers which led to the workup including the CT which found the psoas abscess. She has not had any procedures or surgeries last time she was on antibiotics was in July of last year. Associated symptoms: Reports chills and fatigue; Deny abdominal pain, dysuria, fever(s) or urinary urgency Related Data Home Medications ?Medication ?Instructions ?Recorded ?Confirmed aspirin 81 mg tablet,delayed 81 mg PO DAILY 12/27/19 0 01/18/25 release cholecalciferol (vitamin D3) 50 50 mcg PO DAILY 01/18/25 mcg (2,000 unit) capsule gabapentin 800 mg tablet 800 mg PO DAILY pm dose 03/2501/18/25 atenolol 50 mg-chlorthalidone 25 1 tab PO DAILY 01/18/25 mg tablet gabapentin 300 mg capsule 300 mg PO DAILY AM DOSE 01/0201/18/25 lisinopril 10 mg tablet 10 mg PO BID 01/18/25 rosuvastatin 20 mg tablet 20 mg PO DAILY 01/18/2501/02 Previous Rx's ?Medication ?Instructions ?Recorded meloxicam 15 mg tablet 15 mg PO DAILY #90 tabs 12/02 12/26 metformin 500 mg tablet 500 mg PO BID #180 tabs 04/27 omeprazole 40 mg capsule,delayed 40 mg PO DAILY #30 ca ps 01/08/25 release folic acid 1 mg tablet 1 mg PO DAILY #30 tabs 01/16 methotrexate sodium 2.5 mg tablet See Rx Instructions PO .Q7days #30 01/16/25 tabs Allergies Allergy/AdvReac Type Severity Reaction Status Date / Time No Known Allergies Allergy Verified 01/16/25 11:23 Review of Systems 2 Const: Reports: chills, body aches, fatigue and malaise; Denies: fever(s) Card: Denies: chest pain Resp: Denies: dyspnea GI: Denies: abdominal pain : Denies: dysuria, urinary frequency or urinary urgency Musc: Reports: back pain; Denies: neck pain Skin/Breast: Denies: rash PFSH ED 2 PFSH: Medical History Elevated C-reactive protein Immunization counseling High risk medication use Polyarthralgia CKD stage 3a, GFR 45-59 ml/min Tobacco use disorder Dyslipidemia GERD (gastroesophageal reflux disease) Type 2 diabetes mellitus, without long-term current use of insulin Essential hypertension Chronic pain of both knees Surgical History H/O: hysterectomy H/O section Family History Other CAD (coronary artery disease) Diabetes Hypertension Social History Smoking and tobacco/nicotine status: current every day tobacco/nicotine user cigarettes Packs smoked per day: 0.75 Alcohol intake: never Substance/Drug Use: never Female Reproductive History: Para: 2 Spontaneous abortions: No Physical Exam 2 Const: COMMON NORMALS: no acute distress GENERAL APPEARANCE: cooperative and comfortable ORIENTATION/CONSCIOUSNESS: Yes awake, Yes oriented to person, Yes oriented to place and Yes oriented to time HENMT: COMMON NORMALS: normocephalic, atraumatic and hearing grossly normal bilaterally HEAD & SCALP: normocephalic and atraumatic Resp: COMMON NORMALS: normal respiratory effort, No retractions, No use of accessory muscles and clear to auscultation bilaterally AUSCULTATION: clear to auscultation bilaterally Cardio: COMMON NORMALS: regular rate, regular rhythm and No murmurs present (Cardio) RATE: regular rate RHYTHM: regular rhythm GI: COMMON NORMALS: Soft to palpation and No hepatosplenomegaly present A USCULTATION: Yes normoactive bowel sounds PALPATION: Yes Soft to palpation, No Tenderness to palpation present (GI), No Guarding due to palpation present (GI) and Yes No hepatosplenomegaly present Extremity: COMMON NORMALS: normal to inspection, capillary refill normal, no clubbing, cyanosis or edema, no calf tenderness and no pedal edema Neuro: SENSORIUM/ORIENTATION: Yes oriented to person, Yes oriented to place and Yes oriented to time Skin: COMMON NORMALS: no rashes or lesions noted GENERAL SKIN EXAM: no rashes or lesions noted Course 2 Vital Signs: Vital signs: Vital Signs Temperature 97.8 F 01/18/25 09:55 Pulse Rate 45 L 01/18/25 22:05 Respiratory Rate 16 01/18/25 22:00 Blood Pressure 172/125 01/18/25 22:05 Pulse Oximetry 94 01/18/25 22:05 Oxygen Delivery Me thod Room Air 01/18/25 22:00 MDM - Back Pain/Injury Medical Decision Making Psoas abscess with what looks like potential communication to the cecum. I reviewed the case with Dr. Cosme she felt this a could get a drain in it we might possibly be able to manage it here however the concerning aspect for both of this was a possible communication with the cecum. I discussed with Dr. Morris is on procedure today for radiology he had same concern he does not think a single drain would adequately manage this because of the septations within it also the communication of the cecum may end up requiring surgery. We do not have general surgery coverage at this time. Patient to be transferred to [facility] in [place] we have discussed with her hospitalist service they will accept and will consult surgery when she arrives as well as IR. She has been cultured and initially started on antibiotics. Medical Records I reviewed the patient's medical records. Labs I reviewed the patient's lab results. 01/18/25 10:11 01/18/25 10:11 Laboratory Results WBC 11.12 10^3/uL (3.29-11.43) 01/18/25 10:11 RBC 5.17 10^6/uL (3.85-5.65) 01/18/25 10:11 Hgb 13.40 g/dL (11.27-16.99) 01/18/25 10:11 Hct 43.5 % (36-47) 01/18/25 10:11 MCV 84.1 fl (85-98) L 01/18/25 10:11 MCH 25.9 pg (27-33) L 01/18/25 10:11 MCHC 30.8 g/dL (30-55) 01/18/25 10:11 RDW 19.5 % (12.1-15.1) H 01/18/25 10:11 Plt Count 326 10^3/cmm (157-399) 01/18/25 10:11 MPV 11.1 fL (7.4-10.4) H 01/18/25 10:11 Neut % (Auto) 87.8 % 01/18/25 10:11 Lymph % (Auto) 7.0 % 01/18/25 10:11 Burnett % (Auto) 4.0 % 01/18/25 10:11 Eos % (Auto) 0.4 % 01/18/25 10:11 Baso % (Auto) 0.4 % 01/18/25 10:11 Neut # (Auto) 9.77 10^3/uL (1.8-7.7) H 01/18/25 10:11 Lymph # (Auto) 0.8 10^3/uL (0.8-4.8) 01/18/25 10:11 Burnett # (Auto) 0.4 10^3/uL (0.2-0.9) 01/18/25 10:11 Eos # (Auto) 0.0 10^3/uL (0.0-0.8) 01/18/25 10:11 Baso # (Auto) 0.0 10^3/uL (0.0-0.1) 01/18/25 10:11 Nucleated RBC % (auto) 0 % 01/18/25 10:11 Nucleated RBCs # 0.0 /100WBC 01/18/25 10:11 Sodium 141 mmol/L (136-145) 01/18/25 10:11 Potassium 3.8 mmol/L (3.5-5.1) 01/18/25 10:11 Chloride 99 mmol/L (98-107) 01/18/25 10:11 Carbon Dioxide 27 mmol/L (22-29) 01/18/25 10:11 Anion Gap 18.8 (5-19) 01/18/25 10:11 BUN 28 mg/dL (8-23) H 01/18/25 10:11 Creatinine 1.0 mg/dL (0.5-0.9) H 01/18/25 10:11 GFR Calculation 56.2 mL/min (90-130) L 01/18/25 10:11 Glucose 114 mg/dL (65-115) 01/18/25 10:11 Calculated Osmolality 298 mOsm/kg (285-295) H 01/18/25 10:11 Lactic Acid 1.1 mmol/L (0.5-2.2) 01/18/25 10:11 Calcium 10.2 mg/dL (8.5-10.5) 01/18/25 10:11 Total Bilirubin 0.7 mg/dL (0.15-1.2) 01/18/25 10:11 AST 14 U/L (0-32) 01/18/25 10:11 ALT 15 U/L (0-33) 01/18/25 10:11 Alkaline Phosphatase 72 U/L (35-105) 01/18/25 10:11 Total Protein 7.7 g/dL (6.6-8.7) 01/18/25 10:11 Albumin 4.5 g/dL (3.5-5.2) 01/18/25 10:11 Globulin 3.2 g/dL (1.3-4.6) 01/18/25 10:11 Urine Color Yellow (Yellow) 01/18/25 11:04 Urine Appearance Clear (CLEAR) 01/18/25 11:04 Urine pH 7.0 (5-7) 01/18/25 11:04 Ur Specific [place] 1.008 (1.005-1.030) 01/18/25 11:04 Urine Protein Negative (Negative) 01/18/25 11:04 Urine Glucose (UA) Negative (Normal) 01/18/25 11:04 Urine Ketones Negative (Negative) 01/18/25 11:04 Urine Blood Negative (Negative) 01/18/25 11:04 Urine Nitrate Negative (Negative) 01/18/25 11:04 Urine Bilirubin Negative (Negative) 01/18/25 11:04 Urine Urobilinogen 1.0 mg/dL (Negative) 01/18/25 11:04 Ur Leukocyte Esterase Negative (Negative) 01/18/25 11:04 Urine RBC 0-2 /hpf (0-2) 01/18/25 11:04 Urine WBC 0-5 /hpf (0-5) 01/18/25 11:04 Ur Squamous Epith Cells 0-5 /hpf (0-5) 01/18/25 11:04 Amorphous Sediment Not Reportable 01/18/25 11:04 Urine Bacteria None seen /hpf (NONE) 01/18/25 11:04 Hyaline Casts 0-4 /lpf H 01/18/25 11:04 All radiology interpretation(s) finalized by discharge Discharge Plan Discharge Patient Disposition: Xfer Short-Term Hosp Clinical Impression: Psoas abscess, right Condition: Stable Referrals: Carmen Johnston DO [Primary Care Provider] - Print Language: Gibraltarian Coding Level of Care Code ED Radio/Tv Technician for Luz Medina
[2025-01-18] MEDS: piperacillin-tazobactam 3.375 GM in sodium chloride 0.9% (plus) 50 ML IV ×2 (10:24→19:03)
[2025-01-18 10:37] LABS: Basophils % 0.4 %; Eosinophils % 0.4 %; Hematocrit 43.5 % (36-47); Lymphocytes # 0.8 10^3/uL (0.8-4.8); Mean Corpuscular HGB Conc 30.8 g/dL (30-55); Mean Corpuscular Hemoglobin 25.9 pg (27-33); Mean Corpuscular Volume 84.1 fl (85-98); Mean Platelet Volume 11.1 fL (7.4-10.4); Monocytes # 0.4 10^3/uL (0.2-0.9); Neutrophils # 9.77 10^3/uL (1.8-7.7); Neutrophils % 87.8 %; Nucleated Red Blood Cells % 0 %; Platelet Count 326 10^3/cmm (157-399); Red Blood Count 5.17 10^6/uL (3.85-5.65); Red Cell Distribution Width 19.5 % (12.1-15.1); White Blood Count 11.12 10^3/uL (3.29-11.43)
[2025-01-18 10:45] LABS: Lactic Sepsis W/Reflex 1.1 mmol/L (0.5-2.2)
[2025-01-18 10:55] LABS: Alanine Aminotransferase 15 U/L (0-33); Albumin Level 4.5 g/dL (3.5-5.2); Alkaline Phosphatase 72 U/L (35-105); Anion Gap 18.8 (5-19); Aspartate Amino Transferase 14 U/L (0-32); Blood Urea Nitrogen 28 mg/dL (8-23); Calcium 10.2 mg/dL (8.5-10.5); Carbon Dioxide 27 mmol/L (22-29); Chloride 99 mmol/L (98-107); Creatinine Clr Calc Pharmacy 64.1022; Globulin 3.2 g/dL (1.3-4.6); Glomerular Filtration Rate 56.2 mL/min (90-130); Glucose 114 mg/dL (65-115); Osmolality Calculated 298 mOsm/kg (285-295); Potassium 3.8 mmol/L (3.5-5.1); Sodium 141 mmol/L (136-145); Total Bilirubin 0.7 mg/dL (0.15-1.2); Total Protein 7.7 g/dL (6.6-8.7)
[2025-01-18] MEDS: VANCOMYCIN ADD-Vantage 1,000 MG in 0.9% NaCl ADD-Vantage 250 ML 250 MG IV (11:05)
[2025-01-18 11:12] LABS: Bilirubin Urine Negative (Negative); Blood Urine Negative (Negative); Glucose Urine UA Negative (Normal); Ketones Urine Negative (Negative); Leukocyte Esterase Urine Negative (Negative); Nitrate Urine Negative (Negative); Protein Urine Negative (Negative); Specific Gravity, Urine 1.008 (1.005-1.030); Urine Appearance Clear (CLEAR); Urine Color Yellow (Yellow)
[2025-01-18 11:14] LABS: Add Urine Microscopic? YES; Bacteria Urine None Seen /hpf; Hyaline Casts Urine 0-4 /lpf; RBC Urine 0-2 /hpf (0-2); Squamous Epithelial Cell Urine 0-5 /hpf (0-5); WBC Urine 0-5 /hpf (0-5)
[2025-01-18 11:47] LABS: Add Urine Culture? No
--- NOTE | 2025-01-18 15:57 | PC.NURSE ---
PATIENT SITTING WITH VISITORS, DISCONNECTED FROM MONITOR. PATIENT A&OX4.
[2025-01-18] MEDS: nicotine 21 mg Patch 1 PATCH TRANSDERMA (16:13)
[2025-01-18] MEDS: morphine 4 mg/mL SDV 1 mL 2 MG IVP (16:22)
--- NOTE | 2025-01-18 19:17 | PHA.VACGOAL ---
Vancomycin Goal - Goal Vancomycin Indication:: SSTI - Therapy Day of therpy:: Day []of [] . Actual body weight (kg): 218 lb - Data Labs: WBC 11.12 10^3/uL (3.29-11.43) 01/18/25 10:11 RBC 5.17 10^6/uL (3.85-5.65) 01/18/25 10:11 Hgb 13.40 g/dL (11.27-16.99) 01/18/25 10:11 Hct 43.5 % (36-47) 01/18/25 10:11 MCV 84.1 fl (85-98) L 01/18/25 10:11 MCH 25.9 pg (27-33) L 01/18/25 10:11 MCHC 30.8 g/dL (30-55) 01/18/25 10:11 RDW 19.5 % (12.1-15.1) H 01/18/25 10:11 Sodium 141 mmol/L (136-145) 01/18/25 10:11 Potassium 3.8 mmol/L (3.5-5.1) 01/18/25 10:11 Chloride 99 mmol/L (98-107) 01/18/25 10:11 Carbon Dioxide 27 mmol/L (22-29) 01/18/25 10:11 Anion Gap 18.8 (5-19) 01/18/25 10:11 BUN 28 mg/dL (8-23) H 01/18/25 10:11 Creatinine 1.0 mg/dL (0.5-0.9) H 01/18/25 10:11 GFR Calculation 56.2 mL/min (90-130) L 01/18/25 10:11 Treatment plan:: new consult Regimen:: 1250 MG Q12H
--- NOTE | 2025-01-18 20:50 | PC.NURSE ---
Dr Elaine instructed to hold the Vancomycin for BLS ride to [facility].
[2025-01-18] MEDS: oxyCODONE-APAP 5-325 mg Tablet 1 TAB PO (22:14)
== END 2025-01-18 22:06 | disposition short-term general hospital (02) ==
PROVIDERS: Emergency Provider Family Medicine; PCP Family Medicine
DX: K68.12 Psoas muscle abscess (principal); F17.210 Nicotine dependence, cigarettes, uncomplicated; E11.22 Type 2 diabetes mellitus with diabetic chronic kidney disease; I12.9 Hypertensive chronic kidney disease with stage 1 through stage 4 chronic kidney disease, or unspecified chronic kidney disease; N18.31 Chronic kidney disease, stage 3a; E78.5 Hyperlipidemia, unspecified
CPT/HCPCS: 36415; 80053; 81001; 83605; 85025; 87040; 93005; 96365; 96366; 96367; 96375; 99285; J2270; J2543; J3370; J7050; J9999

== ENCOUNTER → 2025-01-25 08:14 | Outpatient (BNVA) | payer OTHER, MEDICAID, SELFPAY | PROVIDERS: PCP Family Medicine; Visit Provider Family Medicine | DX: K68.12 Psoas muscle abscess (principal) | CPT/HCPCS: 80053; 82607; 85025 ==

== ENCOUNTER 2025-02-16 10:14 | Outpatient (CLI) | payer OTHER, MEDICAID, SELFPAY ==
[2025-02-16 10:39] LABS: Basophils % 0.9 %; Eosinophils # 0.2 10^3/uL (0.0-0.8); Eosinophils % 3.6 %; Hematocrit 42.2 % (36-47); Lymphocytes # 1.2 10^3/uL (0.8-4.8); Lymphocytes % 25.6 %; Mean Corpuscular HGB Conc 30.3 g/dL (30-55); Mean Corpuscular Hemoglobin 25.4 pg (27-33); Mean Corpuscular Volume 83.9 fl (85-98); Monocytes # 0.2 10^3/uL (0.2-0.9); Monocytes % 4.5 %; Neutrophils # 2.93 10^3/uL (1.8-7.7); Neutrophils % 65.2 %; Nucleated Red Blood Cells % 0 %; Platelet Count 228 10^3/cmm (157-399); Red Blood Count 5.03 10^6/uL (3.85-5.65); Red Cell Distribution Width 19.7 % (12.1-15.1); White Blood Count 4.49 10^3/uL (3.29-11.43)
[2025-02-16 10:45] LABS: Erythrocyte Sedimentation Rate 11 mm/hr (0-15)
[2025-02-16 11:12] LABS: Alanine Aminotransferase 23 U/L (0-33); Albumin Level 4.4 g/dL (3.5-5.2); Alkaline Phosphatase 66 U/L (35-105); Aspartate Amino Transferase 29 U/L (0-32); Globulin 2.4 g/dL (1.3-4.6); Glomerular Filtration Rate 72.7 mL/min (90-130); Total Bilirubin 0.3 mg/dL (0.15-1.2); Total Protein 6.8 g/dL (6.6-8.7)
== END 2025-02-16 10:15 | disposition home or self-care (01) ==
LOC: LAB 10:17
PROVIDERS: PCP Family Medicine; Visit Provider Internal Medicine Rheumatology
DX: Z79.899 Other long term (current) drug therapy (principal)
CPT/HCPCS: 80076; 82565; 85025; 85651; 86140

== ENCOUNTER → 2025-03-08 09:05 | Outpatient (BNVA) | payer OTHER, MEDICAID, SELFPAY | PROVIDERS: PCP Family Medicine; Visit Provider Family Medicine | DX: K68.12 Psoas muscle abscess (principal) | CPT/HCPCS: 80053; 85025; 85651; 86140 ==

== ENCOUNTER 2025-03-14 15:41 | Outpatient (CLI) | payer OTHER, MEDICAID, SELFPAY ==
--- NOTE | 2025-03-14 17:15 | CTR_ITS ---
PROCEDURE INFORMATION: Exam: CT Abdomen And Pelvis With Contrast Exam date and time: 03/14/2025 5:21 PM Age: 60 years old Clinical indication: Condition or disease; Prior surgery; Surgery date: 6+ months; Surgery type: Hyst; Had drainage tube pulled 1 month ago for abscess in back, low grade fever 2 weeks ago; Additional info: Fevers, psoas abscess TECHNIQUE: Imaging protocol: Computed tomography of the abdomen and pelvis with contrast. Radiation optimization: All CT scans at this facility use at least one of these dose optimization techniques: automated exposure control; mA and/or kV adjustment per patient size (includes targeted exams where dose is matched to clinical indication); or iterative reconstruction. Contrast material: OMNIPAQUE 350; Contrast volume: 100 ml; Contrast route: INTRAVENOUS (IV); Other contrast: Oral, OMNIPAQUE 350, 50; COMPARISON: CT chest abdpel w/*[id number] 01/16/2025 3:15 PM RADIATION DOSE METRICS: Total DLP (mGy-cm): 841.64 FINDINGS: Lungs: Lung bases are clear. Liver: Normal. No mass. Gallbladder and biliary ducts: Small solitary gallstone dependent portion of gallbladder otherwise gallbladder is unremarkable. Bile ducts not dilated. Pancreas: Unremarkable. Main pancreatic duct is not significantly dilated. Spleen: Normal. No splenomegaly. Adrenal glands: 1.4 cm circumscribed right adrenal lesion unchanged from 06/21/2024, benign. Left adrenal gland is unremarkable.. Kidneys and ureters: Normal. No hydronephrosis. Stomach and bowel: Moderate degree of retained stool throughout the large bowel that may reflect some degree of constipation.Scattered diverticuli large bowel without evidence of diverticulitis. Appendix: No evidence of acute appendicitis. Intraperitoneal space: Unremarkable. No free air. No significant fluid collection. Vasculature: Abdominal aorta and iliac vessels are diffusely calcified. There is no aortic aneurysm. Lymph nodes: Unremarkable. No enlarged lymph nodes. Urinary bladder: Unremarkable as visualized. Reproductive: Uterus has been removed. Bones/joints: Grade 1 degenerative spondylolisthesis L4-L5. No acute bony abnormalities. Soft tissues: Near-complete resolution of right iliopsoas abscess with mild residual soft tissue thickening at the location. CT/CT abdomen pelvis w con* [id number] IMPRESSION: 1. Near-complete resolution of right iliopsoas abscess collection. 2. Moderate degree of retained stool throughout the large bowel that may reflect some degree of constipation. 3. Cholelithiasis without evidence of acute cholecystitis.
[2025-03-14] MEDS: iohexol 350 mg/mL 500 mL Btl (per mL) IV (17:29)
[2025-03-14] MEDS: iohexol 350 mg/mL 500 mL Btl (per mL) PO (17:29)
== END 2025-03-14 15:42 | disposition home or self-care (01) ==
LOC: RAD 15:43
PROVIDERS: PCP Family Medicine; Visit Provider Family Medicine
DX: K68.12 Psoas muscle abscess (principal); K59.00 Constipation, unspecified; K80.20 Calculus of gallbladder without cholecystitis without obstruction
CPT/HCPCS: 74177

== ENCOUNTER → 2025-05-15 10:38 | Outpatient (BNVA) | payer MEDICARE, MEDICAID, SELFPAY | PROVIDERS: PCP Family Medicine; Visit Provider Internal Medicine Rheumatology | DX: Z79.899 Other long term (current) drug therapy (principal); Z71.85 Encounter for immunization safety counseling; R79.82 Elevated C-reactive protein (CRP); M06.041 Rheumatoid arthritis without rheumatoid factor, right hand; M06.042 Rheumatoid arthritis without rheumatoid factor, left hand; M25.551 Pain in right hip | CPT/HCPCS: 99214 ==

== ENCOUNTER → 2025-05-22 14:36 | Outpatient (BNVA) | payer MEDICARE, MEDICAID, SELFPAY | PROVIDERS: PCP Family Medicine; Visit Provider Internal Medicine Rheumatology | DX: M70.60 Trochanteric bursitis, unspecified hip (principal) | CPT/HCPCS: 20610; J1010; J9999 ==

== ENCOUNTER 2025-06-18 09:43 | Outpatient (CLI) | payer MEDICARE, MEDICAID, SELFPAY ==
[2025-06-18 10:49] LABS: Hematocrit 40.6 % (36-47); Hemoglobin 12.50 g/dL (11.27-16.99); Mean Corpuscular HGB Conc 30.8 g/dL (30-55); Mean Corpuscular Hemoglobin 26.9 pg (27-33); Mean Corpuscular Volume 87.5 fl (85-98); Nucleated Red Blood Cells % 0 %; Platelet Count 213 10^3/cmm (157-399); Red Blood Count 4.64 10^6/uL (3.85-5.65); White Blood Count 5.05 10^3/uL (3.29-11.43)
[2025-06-18 11:23] LABS: Alanine Aminotransferase 22 U/L (0-33); Albumin Level 4.4 g/dL (3.5-5.2); Alkaline Phosphatase 67 U/L (35-105); Aspartate Amino Transferase 18 U/L (0-32); Globulin 2.4 g/dL (1.3-4.6); Total Protein 6.8 g/dL (6.6-8.7)
== END 2025-06-18 09:44 | disposition home or self-care (01) ==
PROVIDERS: PCP Family Medicine; Visit Provider Internal Medicine Rheumatology
DX: Z79.899 Other long term (current) drug therapy (principal)
CPT/HCPCS: 36415; 80076; 82565; 85025; 85651; 86140

== ENCOUNTER → 2025-06-25 09:12 | Outpatient (BNVA) | payer MEDICARE, MEDICAID, SELFPAY | PROVIDERS: PCP Family Medicine; Visit Provider Family Medicine | DX: E11.9 Type 2 diabetes mellitus without complications (principal) | CPT/HCPCS: 80053; 80061; 82043; 83036 ==

== ENCOUNTER → 2025-07-16 10:21 | Outpatient (BNVA) | payer MEDICARE, MEDICAID, SELFPAY | PROVIDERS: PCP Family Medicine; Referring Provider Family Medicine; Visit Provider Dermatology | DX: L81.9 Disorder of pigmentation, unspecified (principal); D18.01 Hemangioma of skin and subcutaneous tissue; L81.4 Other melanin hyperpigmentation; D48.5 Neoplasm of uncertain behavior of skin | CPT/HCPCS: 11104; 99204 ==

== ENCOUNTER → 2025-07-30 10:58 | Outpatient (BNVA) | payer MEDICARE, MEDICAID, SELFPAY | PROVIDERS: PCP Family Medicine; Visit Provider Dermatology | DX: L81.9 Disorder of pigmentation, unspecified (principal) | CPT/HCPCS: 99214 ==

== ENCOUNTER → 2025-08-24 09:25 | Outpatient (BNVA) | payer MEDICARE, MEDICAID, SELFPAY | PROVIDERS: PCP Family Medicine; Visit Provider Dermatology | DX: L81.9 Disorder of pigmentation, unspecified (principal) | CPT/HCPCS: 11102; 99214 ==

== ENCOUNTER → 2025-09-18 11:09 | Outpatient (BNVA) | payer MEDICARE, MEDICAID, SELFPAY | PROVIDERS: PCP Family Medicine; Visit Provider Dermatology | DX: L80 Vitiligo (principal) | CPT/HCPCS: 99213 ==